=== PATIENT | male | born 1955 | race Caucasian/White ===

== ENCOUNTER 2022-04-08 12:28 | Outpatient (CLI) | payer BC | END 2022-04-08 12:29 | disposition home or self-care (01) | LOC: CSHULT 12:28 | PROVIDERS: ATTEND Family Medicine | DX: Z12.2 Encounter for screening for malignant neoplasm of respiratory organs (principal); F17.210 Nicotine dependence, cigarettes, uncomplicated; Z86.19 Personal history of other infectious and parasitic diseases; M54.9 Dorsalgia, unspecified; K76.9 Liver disease, unspecified | CPT/HCPCS: 71271; 76705 ==